=== PATIENT | male | born 1975 | race Two or more races ===

== ENCOUNTER 2025-05-20 20:58 | Emergency (ER) | payer MEDICAID ==
[~2025-05-20] VITALS: Ht 170.2 cm; Wt 127.5 kg
[2025-05-20 21:13] VITALS: TEMP 97.5
--- NOTE | 2025-05-20 22:09 | Physician Documentation ---
History of Present Illness ~ Chief Complaint: Foot pain Stated Complaint: FOOT PAIN Time Seen by MD: 21:45 Primary Medical Doctor: none Source: patient Mode of Arrival: POV Exam Limitations: no limitations HPI Patient with no past medical history presents secondary to right foot pain. He states pain onset was one months ago after walking on gravel. He denies other injury. Now presents with pain with palpation and swelling to the foot and right leg. Tetanus witin 5 years: No (unknown) Medication Reconciliation Allergies: Coded Allergies: No Known Allergies (Unverified , 05/20/25) Scheduled Cephalexin*Monohydrate* (Keflex*), 2 CAP PO BID Past Medical History Past Medical History: No Pertinent History Past Surgical History: abdominal surgery (Hernia repair) Smoking Status: Unknown if ever smoked Alcohol Use: None Drug Use: none Review of Systems ROS Patient complains of pain and swelling to the right foot. Was asked, but otherwise denies review of systems. Physical Exam Vital Signs: RN Vital Signs have been reviewed: Yes, Temperature: 97.5, Source: Temporal, Heart Rate: 94, Respiratory Rate: 20, BP: 149/107, Pulse Oximetry: 100, Weight: 127.500 Oxygen Flow Rate: 0 Pulse Oximetry Reflects: adequate oxygenation Physical Exam General: Awake, alert, oriented. No apparent distress Respiratory: Lungs are clear to auscultation bilaterally. No respiratory distress. Chest: Normal shape and size. No accessory muscle use. Cardiovascular: Regular rate and rhythm. S1-S2. No murmur, gallop, rub. Extremities: Plus one pitting edema to the right. Trace to the left. No cyanosis or clubbing. The right slit has swelling and minimal erythema. Neurologic: Alert and oriented x4. Nonfocal Psychiatric: Normal mood and affect. Skin: Normal color. Warm and dry. Progress Results/Orders Results/Orders Vital Signs 05/20/25 05/20/25 21:13 22:09 Temp 97.5 Pulse 94 Resp 20 15 B/P (MAP) 149/107 Pulse Ox 100 O2 Flow Rate 0 EKG/XRAY/CT/US/VASC/MRI Bone/Soft Tissue X-Ray (Ext.) : Views: 3 VIEW Indication: pain Location: foot Impression: normal Additional Comment [facility] [address], [place], [facility] [address] DIAGNOSTIC RADIOLOGY Patient: DONNY NELSON Medical Record: [id number] JOSEPH MOUNT STERLING : 1975, Age: 49 Sex: Male Location: ER Patient Status: [facility] ER Service Date/Time: 05/20/252138 Ordering Physician: FELICE SEQUEIRA DO Exam: FOOT, COMPLETE (3VW MIN) EXAM: DI FOOT, COMPLETE (3VW MIN) HISTORY: Right FOOT PAIN COMPARISON: None TECHNIQUE: DI FOOT, COMPLETE (3VW MIN) FINDINGS/IMPRESSION: No acute fracture or dislocation. The soft tissues are unremarkable. If clinical symptoms persist, a repeat radiograph may be obtained in 10-14 days to better visualize a fracture line. Electronically Signed by:DENA HARVEY MD Date & Time: 05/20/252249 Dictated by: DENA HARVEY MD Dictation date and time: 05/20/252150 Primary Care Provider: NO PRIMARY CARE PROVIDER cc: FELICE SEQUEIRA DO ~ Medical Decision Making Additional information obtaine: N/A Findings Presents with a one month history of pain in his foot that is worse with walking. Pain occurred 1st after he was walking barefoot on gravel. He has no evidence of puncture wound. There is some swelling and erythema. Therefore, given antibiotics for possible cellulitis. X-ray was without acute dislocation or fracture. He did have some swelling. Consider DVT but no risk factors. He isn't tachycardic. Recommend that he follow up with primary care provider. Concern for possible peripheral neuropathy. May aslo be plantar fascitiis as pain is located on the arch. No evidence of an acute emergency at this time. Discussed recommendation for outpatient follow up. General Diff Dx:Considerations: Include: Contusion, Fracture, Laceration, Neurovascular injury, Open fracture, Ulcer Knee Diff Dx:Considerations: Include: Other Ankle Diff Dx:Considerations: Include: Other Foot Diff Dx:Considerations: Include: Abrasion, Cellulitis, Contusion, Neurovascular injury, Puncture, Sprain, Septic, Ulcer Toe Diff Dx:Considerations: Include: Other Departure Time of Disposition: 22:54 Disposition: 01 HOME / SELF CARE / HOMELESS Impression: Primary Impression: Foot pain Qualified Codes: M79.671 - Pain in right foot Additional Impression: Cellulitis Qualified Codes: L03.115 - Cellulitis of right lower limb Condition: Stable Discharge Instructions: Cellulitis Additional Instructions: Your foot is swollen and slightly red. Therefore, I am treating for possible skin infection. I suspect that you may have something called neuropathy. I recommend that you follow up with a primary care provider for further evaluation. Your x-ray did not show a fracture or dislocation. Please return for new or worsening symptoms. Referrals: NO PRIMARY CARE PROVIDER (PCP) Prescriptions Cephalexin*Monohydrate* (Keflex*) 500 Mg Capsule 2 CAP PO BID for 5 Days, #20 CAP Prov: GUERLINE CRAWLEY NP 05/20/25 Education Educated: Patient Educated regarding: diagnosis, treatment, need for follow up Signature Scribe Signature: No scribe Attestation: The note accurately reflects work and decisions made by me.Guerline Crawley - CRISELDA 05/20/25 23:04 This note was created with the assistance of voice recognition software whereby errors in grammar, syntax, and/or spelling may have occurred despite active proofreading efforts by the author. Please do not hesitate to contact the provider for clarification or for questions regarding the content of this document. GUERLINE CRAWLEY NP May 20, 2025 22:09
--- NOTE | 2025-05-20 22:52 | RADIOLOGY REPORT ---
EXAM: DI FOOT, COMPLETE (3VW MIN) HISTORY: Right FOOT PAIN COMPARISON: None TECHNIQUE: DI FOOT, COMPLETE (3VW MIN) FINDINGS/IMPRESSION: No acute fracture or dislocation. The soft tissues are unremarkable. If clinical symptoms persist, a repeat radiograph may be obtained in 10-14 days to better visualize a fracture line.
[2025-05-20] MEDS ORDERED: CEPH-585 PO (22:56)
[2025-05-20 23:02] VITALS: BP 131/99; PULSE 87; RESP 16; O2SAT 99
== END 2025-05-20 23:07 | disposition home or self-care (01) ==
LOC: ER 20:58
DX: L03.115 Cellulitis of right lower limb (principal); M79.671 Pain in right foot; Z87.442 Personal history of urinary calculi; Z98.890 Other specified postprocedural states
CPT/HCPCS: 73630; 99283